=== PATIENT | male | born 1970 ===

== ENCOUNTER 2022-12-29 08:18 | Outpatient (CLI) | payer OTHER | END 2022-12-29 08:19 | disposition home or self-care (01) | LOC: LAB 08:18 | PROVIDERS: ATTEND Urology | DX: N20.0 Calculus of kidney (principal) ==

== ENCOUNTER 2022-12-29 08:56 | Outpatient (CLI) | payer OTHER | END 2022-12-29 09:05 | disposition home or self-care (01) | LOC: TOM 08:56 | PROVIDERS: ATTEND Urology | DX: N20.0 Calculus of kidney (principal) ==

== ENCOUNTER → 2023-04-01 08:46 | Outpatient (CLI) | payer OTHER ==
[2023-04-01 10:55] LABS: NA URINE 24 HR 171.55 mmol/24h (40-220)
== END | disposition home or self-care (01) ==
LOC: LAB 08:46
PROVIDERS: ATTEND Urology
DX: N20.0 Calculus of kidney (principal)